=== PATIENT | female | born 1985 | race Caucasian/White ===

== ENCOUNTER 2017-11-17 11:20 | Emergency (ER) | payer OTHER ==
--- NOTE | 2017-11-17 11:41 | EDPHY ---
H & P Stated Complaint: 40 min r eye disturbance/r arm numbness Time Seen by Provider: 11/17/17 11:40 - Personal History LMP (Females 10-55): Extended Cycle BCP/Inj Current Tetanus/Diphtheria Vaccine: Yes - Medical/Surgical History Hx Asthma: No Hx Chronic Respiratory Disease: No Hx Diabetes: No Hx Cardiac Disease: No Hx Renal Disease: No Hx Cirrhosis: No Hx Alcoholism: No Hx HIV/AIDS: No Hx Splenectomy or Spleen Trauma: No Other PMH: denies - Social History Smoking Status: Former smoker Constitutional: Initial Vital Signs Temperature (C) 36.2 C 11/17/17 11:36 Heart Rate 93 11/17/17 11:36 Respiratory Rate 18 11/17/17 11:36 Blood Pressure 129/77 H 11/17/17 11:36 O2 Sat (%) 96 11/17/17 11:36 O2 Delivery Mode Room Air Allergies/Adverse Reactions: No Known Allergies Allergy (Unverified 11/17/17 11:35) Home Medications: Medication Instructions Recorded Valtrex 11/17/17 Medical Decision Making - Diagnostics Imaging: Discussed imaging studies w/ call center rn Radiologist ED Course/Re-evaluation: CHIEF COMPLAINT: Right-sided facial and hand numbness HISTORY OF PRESENT ILLNESS: This patient is a 32 year old female complaining of right-sided facial and hand numbness. She woke this morning feeling well and went climbing and then went to the gym as usual. Later, she could not think of the word "touch" and had other word-finding difficulties.Then she lost vision in her right eye and endorses a "kaleidoscope" pattern in her vision. This has since resolved. She ate some food and tried to relax, but she then noted right-sided facial numbness. After this, she developed right hand numbness. She has a dull headache as well. 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 She is concerned regarding the possibility of TIA. She denies recent trauma or head injury. She denies recent illness, fever, chest pain, shortness of breath, or other associated symptoms. REVIEW OF SYSTEMS: A 10 point review of systems was performed and is negative with the exception of the elements mentioned in the history of present illness. PHYSICAL EXAM: HR, BP, O2 Sat, RR. Temp noted General Appearance: Tearful, appears anxious. Alert, well hydrated, appropriate , and non-toxic appearing. Head: Atraumatic without scalp tenderness or obvious injury Eyes: Right-sided horizontal nystagmus. Pupils equal, round, reactive to light and accommodation, EOMI, no trauma, no injection. Ears: Clear bilaterally, no perforation, normal landmarks Nose: Atraumatic, no rhinorrhea, clear. Throat: There is no erythema or exudates, no lesions, normal tonsils, mucus membranes moist. Neck: Supple, 2+ carotid upstroke, nontender, no lymphadenopathy. Respiratory: No retractions, no distress, no wheezes, and no accessory muscle use. Lungs are clear to auscultation bilaterally. Cardiovascular: Regular rate and rhythm, no murmurs, rubs, or gallops. Bilateral carotid, radial, dorsalis pedis, and posterior tibial pulses intact. Good capillary refill all extremities. Gastrointestinal: Abdomen is soft, nontender, non-distended, no masses, no rebound, no guarding, no peritoneal signs. Musculoskeletal: Normal active ROM of all extremities, atraumatic. Neurological: Alert, appropriate, and interactive. The patient has normal DTRs and non-focal cranial nerves, motor, sensory, and cerebellar exam. Skin: No rashes, good turgor, no nodules on palpation. Past medical history: Migraines Past surgical history: Noncontributory Family history: Noncontributory. Social history: Single. Works at [employer]. Does not abuse tobacco , drugs, or alcohol. DIFFERENTIAL DIAGNOSIS: The differential diagnosis for the patient's neurologic deficits included but was not limited to peripheral causes, central causes including CVA, TIA, electrolyte abnormalities and dehydration, cardiogenic causes, atypical causes like migraine syndrome. MEDICAL DECISION MAKIN32 y/o female presents following an episode of right-sided facial and upper extremity numbness. I do not appreciate any neurologic deficits on exam. Plan for MRI brain to r/o acute processes. Plan for labs including CBC, chemistries. Plan to administer 10mg IV Reglan, 30mg IV Toradol, and 10mg IV Decadron for symptom relief. 12:[address] Mccall, radiologist. MRI brain negative for acute processes. Patient's symptoms are likely consistent with atypical migraine. No abnormalities noted on MRI. Reassessed patient and discussed results of imaging studies. She is feeling better following medication administration and is reassured about the MRI findings. Plan to discharge home in good condition. Follow up and return precautions discussed. She is comfortable with this plan. - Data Points Laboratory Results: Laboratory Results 11/17/17 11:50 11/17/17 11:50 11/17/17 11/17/17 11/17/17 11:50 11:50 11:50 WBC 4.71 10^3/uL 10^3/uL (3.80-9.50) RBC 4.81 10^6/uL 10^6/uL (4.18-5.33) Hgb 14.8 g/dL g/dL (12.6-16.3) Hct 42.3 % % (38.0-47.0) MCV 87.9 fL fL (81.5-99.8) MCH 30.8 pg pg (27.9-34.1) MCHC 35.0 g/dL g/dL (32.4-36.7) RDW 12.1 % % (11.5-15.2) Plt Count 273 10^3/uL 10^3/uL (150-400) MPV 9.2 fL fL (8.7-11.7) Neut % (Auto) 76.7 % H % (39.3-74.2) Lymph % (Auto) 14.9 % L % (15.0-45.0) Pierce % (Auto) 7.2 % % (4.5-13.0) Eos % (Auto) 0.2 % L % (0.6-7.6) Baso % (Auto) 0.8 % % (0.3-1.7) Nucleat RBC Rel Count 0.0 % % (0.0-0.2) Absolute Neuts (auto) 3.61 10^3/uL 10^3/uL (1.70-6.50) Absolute Lymphs (auto) 0.70 10^3/uL L 10^3/uL (1.00-3.00) Absolute Monos (auto) 0.34 10^3/uL 10^3/uL (0.30-0.80) Absolute Eos (auto) 0.01 10^3/uL L 10^3/uL (0.03-0.40) Absolute Basos (auto) 0.04 10^3/uL 10^3/uL (0.02-0.10) Absolute Nucleated RBC 0.00 10^3/uL 10^3/uL (0-0.01) Immature Gran % 0.2 % % (0.0-1.1) Immature Gran # 0.01 10^3/uL 10^3/uL (0.00-0.10) Sodium 143 mEq/L mEq/L (135-145) Potassium 3.8 mEq/L mEq/L (3.3-5.0) Chloride 105 mEq/L mEq/L (97-110) Carbon Dioxide 25 mEq/l mEq/l (22-31) Anion Gap 13 mEq/L mEq/L (8-16) BUN 6 mg/dL L mg/dL (7-23) Creatinine 0.9 mg/dL mg/dL (0.6-1.0) Estimated GFR > 60 Glucose 95 mg/dL mg/dL (70-100) Calcium 9.4 mg/dL mg/dL (8.5-10.4) Beta HCG, Qual NEGATIVE Medications Given: Discontinued Medications Dexamethasone (Decadron Injection) 10 mg IVP EDNOW ONE Stop: 11/17/17 11:48 Last Admin: 11/17/17 11:56 Dose: 10 mg Ketorolac Tromethamine (Toradol) 30 mg IVP EDNOW ONE Stop: 11/17/17 11:48 Last Admin: 11/17/17 11:59 Dose: 30 mg Metoclopramide HCl (Reglan Injection) 10 mg IVP EDNOW ONE Stop: 11/17/17 11:48 Last Admin: 11/17/17 11:57 Dose: 10 mg Departure - Departure Disposition: Home, Routine, Self-Care Clinical Impression: Atypical migraine Condition: Good Instructions: Migraine Headache (ED) Additional Instructions: Follow-up with your primary care physician within 2-3 days. We have provided a referral to our neurologist reception centre manager as well for further evaluation of atypical migraines. Return to the emergency department immediately for recurrence of headache, nausea, vomiting, numbness, weakness, neck pain, fever or other concerns. Use Tylenol and/or ibuprofen as directed. Referrals: Brian Villa MD [Medical Doctor] - As per Instructions Report Scribed for: Misha Zhang Report Scribed by: Carrie Luu Date of Report: 11/17/17 Time of Report: 11:42
[2017-11-17] MEDS ORDERED: KETOROLAC 30 MG/1 ML SDV IVP ONE (11:47)
[2017-11-17] MEDS ORDERED: DEXAMETHASONE 10 MG/ML VIAL IVP ONE (11:47)
[2017-11-17] MEDS ORDERED: METOCLOPRAMIDE 10 MG/2 ML VIAL IVP ONE (11:47)
[2017-11-17 12:08] LABS: PLATELET COUNT 273 10^3/uL (150-400)
[2017-11-17 12:36] VITALS: BP 107/55
== END 2017-11-17 12:52 | disposition home or self-care (01) ==
DX: G43.809 Other migraine, not intractable, without status migrainosus (principal); Z87.891 Personal history of nicotine dependence
CPT/HCPCS: 96374; J1100; J1885; J2765

== ENCOUNTER → 2017-12-16 | Outpatient (CLI) | payer OTHER | LOC: BMCIMAGING 13:03 | PROVIDERS: ATTEND Family Medicine | DX: Z13.29 Encounter for screening for other suspected endocrine disorder (principal) | CPT/HCPCS: 76536-PO ==